=== PATIENT | female | born 1945 | race Caucasian/White ===

== ENCOUNTER 2017-04-24 11:55 | Emergency (ER) | payer MEDICARE, OTHER ==
[2017-04-26 20:58] LABS: BLOOD UREA NITROGEN 10 mg/dL (7-18)
== END 2017-04-24 16:09 | disposition home or self-care (01) ==
LOC: ED 11:55
DX: R55 Syncope and collapse (principal); Z87.891 Personal history of nicotine dependence
CPT/HCPCS: 36415; 70450; 71010; 80048; 85025; 85610; 85730; 93005; 99285

== ENCOUNTER → 2017-05-02 | Outpatient (CLI) | payer MEDICARE, OTHER | END | disposition home or self-care (01) | LOC: CARD 07:27 | PROVIDERS: ATTEND Internal Medicine | DX: R55 Syncope and collapse (principal) | CPT/HCPCS: 95819 ==